=== PATIENT | female | born 1950 | race Caucasian/White ===

== ENCOUNTER 2023-03-23 18:26 | Inpatient (IN) | payer MEDICARE ==
[2023-03-23] MEDS ORDERED: Ipratropium/Albuterol 3 ML NEB NEB PRN (19:22)
[2023-03-23] MEDS ORDERED: Ondansetron ODT 4 MG TAB PO PRN (19:22)
[2023-03-23] MEDS ORDERED: Glucagon 1 MG/ML KIT IM PRN (19:22)
[2023-03-23] MEDS ORDERED: Ondansetron PF 4 MG/2 ML Vial IVP PRN (19:22)
[2023-03-23] MEDS ORDERED: Dextrose 50% Abboject 50 ML SYRINGE SLOW IVP PRN (19:22)
[2023-03-23] MEDS ORDERED: hydrALAZINE 20 MG/ML VIAL SLOW IVP PRN (19:22)
[2023-03-23] MEDS ORDERED: Dextrose 5% in Water 1,000 ML IV PRN (19:22)
[2023-03-23] MEDS ORDERED: Cyclobenzaprine 10 MG TAB PO PRN (19:27)
[2023-03-23 22:08] VITALS: BMI 31.3
[2023-03-23] MEDS ORDERED: Famotidine 20 MG TAB PO SCH (22:30)
[2023-03-23] MEDS: Gabapentin 100 MG CAP PO SCH (22:40)
[2023-03-23] MEDS: Acetaminophen 500 MG TAB PO SCH (22:41)
[2023-03-23] MEDS: Senokot S 8.6-50 MG TAB PO SCH (22:42)
[2023-03-23] MEDS: Ketorolac Tromethamine 30 MG/ML VIAL IVP SCH (22:42)
[2023-03-23] MEDS: traMADol HCl 50 MG TAB PO SCH (22:43)
[2023-03-23] MEDS ORDERED: Magnesium 2 GM/50 ML(in water) 2 GM in Premix Bag 1 BAG IVPB SCH (23:15)
[2023-03-24] MEDS: Gabapentin 100 MG CAP PO SCH ×3 (06:18→20:45)
[2023-03-24] MEDS: traMADol HCl 50 MG TAB PO SCH ×4 (06:18→23:39)
[2023-03-24] MEDS: Ketorolac Tromethamine 30 MG/ML VIAL IVP SCH ×4 (06:19→23:38)
[2023-03-24] MEDS: Acetaminophen 500 MG TAB PO SCH ×4 (06:19→23:39)
[2023-03-24 06:45] LABS: #Basophils 0.1 thou/uL (0.0-0.2); #Eosinphils 0.2 thou/uL (0.0-0.7); #Monocytes 1.6 thou/uL (0.11-0.59); #Neutrophils 6.8 thou/uL (1.40-6.50); %Basophils 0.4 % (0.0-1.0); %Eosinophils 1.8 % (0.0-10.0); %Lymphocytes 28.9 % (21.0-51.0); %Neutrophils 55.4 % (42.0-75.0); Hematocrit 44.9 % (36.0-47.0); Mean Corpuscular HGB CONC 33.4 g/dL (32.0-36.0); Mean Corpuscular Hemoglobin 30.5 pg (27.0-31.0); Mean Corpuscular Volume 91.4 fl (78.0-98.0); Mean Platelet Volume 11.7 fL (7.4-10.4); Red Blood Cell (RBC) Count 4.91 mill/uL (4.20-5.40); White Blood Cell (WBC) Count 12.3 10x3/uL (4.8-10.8)
[2023-03-24 06:50] LABS: Platelet Count 112 10x3/uL (130-400)
[2023-03-24 07:32] LABS: Anion Gap 17 mmol/L (10-20); BUN (Urea Nitrogen) 22 mg/dL (9.8-20.1); Calc. Creatinine Clearance 63 mL/min (70-130); Calcium 8.8 mg/dL (7.8-10.44); Carbon Dioxide 27 mmol/L (23-31); Chloride 94 mmol/L (98-107); Estimated GFR 71; Glucose 101 mg/dL (83-110); Phosphorus 3.4 mg/dL (2.3-4.7); Potassium 3.6 mmol/L (3.5-5.1); Sodium 134 mmol/L (136-145)
[2023-03-24] MEDS: Senokot S 8.6-50 MG TAB PO SCH ×2 (08:53→20:45)
[2023-03-24] MEDS: Polyethylene Glycol 3350 17 GM Packet PO SCH (08:53)
[2023-03-24] MEDS: traMADol HCl 50 MG TAB PO PRN (08:56)
[2023-03-24 18:35] LABS: Bacteria/HPF None Seen HPF (None Seen); Bilirubin Negative (Negative); Blood, Urine Negative (Negative); CAUTI Indications for Culture Alt mental st,lethar; Clarity Clear (Clear); Glucose, Urine (Dipstick) Normal (Negative); Ketone, Urine Negative (Negative); Leukocyte 75 Leu/uL (Negative); Nitrite Negative (Negative); Protein, Urine (Dipstick) Negative (Neg-Trace); RBC/HPF 0-3 HPF (0-3); Specific Gravity, Urine 1.025 (1.002-1.036); Urobilinogen Normal mg/dL (Less than 2)
[2023-03-24 18:37] LABS: Urine Culture Reflex No No
[2023-03-24] MEDS ORDERED: Famotidine 20 MG TAB PO SCH (21:00)
[2023-03-25] MEDS: Gabapentin 100 MG CAP PO SCH (05:20)
[2023-03-25] MEDS: traMADol HCl 50 MG TAB PO SCH ×2 (05:21→12:42)
[2023-03-25] MEDS: Acetaminophen 500 MG TAB PO SCH ×2 (05:21→12:42)
[2023-03-25] MEDS: Senokot S 8.6-50 MG TAB PO SCH (09:15)
[2023-03-25] MEDS: Polyethylene Glycol 3350 17 GM Packet PO SCH (09:15)
[2023-03-25] MEDS: traMADol HCl 50 MG TAB PO PRN (09:33)
[2023-03-25 11:31] VITALS: BP 109/69; TEMP 97.7
== END 2023-03-25 15:45 | disposition home or self-care (01) | DRG 185 ==
LOC: INTOOBSV 21:19 → SURG A 21:19 → OBSVTOIN 03-25 11:03
PROVIDERS: ADMIT Specialist; ATTEND Specialist
DX: S22.41XA Multiple fractures of ribs, right side, initial encounter for closed fracture (principal); I10 Essential (primary) hypertension; G43.909 Migraine, unspecified, not intractable, without status migrainosus; E87.6 Hypokalemia; W18.31XA Fall on same level due to stepping on an object, initial encounter; Z85.3 Personal history of malignant neoplasm of breast; Z98.891 History of uterine scar from previous surgery; Z98.890 Other specified postprocedural states; Z88.8 Allergy status to other drugs, medicaments and biological substances
CPT/HCPCS: 80048; 81001; 83735; 84100; 85025; J0360; J1650; J1885; J3475